=== PATIENT | female | born 1965 | race Caucasian/White ===

== ENCOUNTER → 2016-07-30 | Outpatient (CLI) | payer OTHER | END | disposition home or self-care (01) | LOC: MA 15:31 | PROC: BH02ZZZ Plain Radiography of Bilateral Breasts (ICD-10-PCS; principal; 2016-07-30) | DX: Z12.31 Encounter for screening mammogram for malignant neoplasm of breast (principal) | CPT/HCPCS: G0202 ==

== ENCOUNTER → 2016-08-12 | Outpatient (CLI) | payer OTHER ==
[2016-08-12 08:21] LABS: BASOPHIL % 0.9 % (0-2); PLATELET COUNT 230 x10^3mcL (130-400); RED CELL DISTRIBUTION WIDTH 13.1 % (11.5-14.5)
[2016-08-12 09:07] LABS: ALBUMIN 3.8 g/dL (3.4-5.0); ALKALINE PHOSPHATASE 71 U/L (46-116); ALT/SGPT 47 U/L (14-59); AST/SGOT 24 U/L (15-37); BILIRUBIN DIRECT 0.08 mg/dL (0.0-0.2); CALCIUM 8.9 mg/dL (8.5-10.1); CARBON DIOXIDE 27.1 mmol/L (21-32); CHLORIDE SERUM 105 mmol/L (98-107); CREATININE SERUM 0.7 mg/dL (0.6-1.0); FREE T4 0.99 ng/dL (0.76-1.46); GFR1 > 60 mL/min; GLUCOSE SERUM 106 mg/dL (74-106); HDL CHOLESTEROL 46 mg/dL (40-60); SODIUM SERUM 141 mmol/L (136-145); TOTAL PROTEIN, SERUM 7.5 g/dL (6.4-8.2)
[2016-08-12 09:33] LABS: CHOLESTEROL 225 mg/dL (<200); CHOLESTEROL/HDL RATIO 4.9; TRIGLYCERIDES 276 mg/dL (<150)
== END | disposition home or self-care (01) ==
LOC: LB 07:50
PROVIDERS: Internal Medicine
DX: Z00.00 Encounter for general adult medical examination without abnormal findings (principal)
CPT/HCPCS: 84439

== ENCOUNTER 2016-09-04 12:10 | Emergency (ER) | payer OTHER ==
[2016-09-04 12:21] VITALS: BP 147/82
== END 2016-09-04 12:32 | disposition home or self-care (01) ==
LOC: ED 12:10
DX: H65.93 Unspecified nonsuppurative otitis media, bilateral (principal)

== ENCOUNTER → 2017-04-10 | Outpatient (CLI) | payer OTHER | END | disposition home or self-care (01) | LOC: US 11:30 | PROC: BW4GZZZ Ultrasonography of Pelvic Region (ICD-10-PCS; principal; 2017-04-10) | DX: N95.0 Postmenopausal bleeding (principal) ==

== ENCOUNTER 2017-05-07 15:56 | Emergency (ER) | payer OTHER ==
[~2017-05-07] VITALS: Ht 162.6 cm; Wt 86.2 kg
[2017-05-07 15:58] VITALS: Ht 162.6 cm; Wt 86.2 kg
[2017-05-07 16:37] LABS: BASOPHIL % 0.7 % (0-2); PLATELET COUNT 231 x10^3mcL (130-400); RED CELL DISTRIBUTION WIDTH 13.3 % (11.5-14.5)
[2017-05-07 16:46] LABS: CALCIUM 9.2 mg/dL (8.5-10.1); CARBON DIOXIDE 27.8 mmol/L (21-32); CHLORIDE SERUM 102 mmol/L (98-107); CREATININE SERUM 0.7 mg/dL (0.6-1.0); GFR1 > 60 mL/min; GLUCOSE SERUM 98 mg/dL (74-106); POTASSIUM SERUM 3.6 mmol/L (3.5-5.1); SODIUM SERUM 140 mmol/L (136-145)
[2017-05-07 16:51] LABS: ALBUMIN 3.9 g/dL (3.4-5.0); ALKALINE PHOSPHATASE 75 U/L (46-116); ALT/SGPT 94 U/L (14-59); AST/SGOT 65 U/L (15-37); BILIRUBIN TOTAL 0.2 mg/dL (0.20-1.00); TOTAL PROTEIN, SERUM 7.9 g/dL (6.4-8.2)
[2017-05-07 17:37] VITALS: BP 136/80
== END 2017-05-07 17:50 | disposition home or self-care (01) ==
LOC: ED 15:56
PROVIDERS: Emergency Medicine
DX: L04.0 Acute lymphadenitis of face, head and neck (principal); Z88.1 Allergy status to other antibiotic agents; Z88.2 Allergy status to sulfonamides; Z88.5 Allergy status to narcotic agent
CPT/HCPCS: 36415

== ENCOUNTER 2018-07-27 02:07 | Emergency (ER) | payer OTHER ==
[~2018-07-27] VITALS: Ht 162.6 cm; Wt 94.3 kg
[2018-07-27 02:20] VITALS: Ht 162.6 cm; Wt 94.3 kg
[2018-07-27 03:52] VITALS: BP 139/88
== END 2018-07-27 03:52 | disposition home or self-care (01) ==
LOC: ED 02:07
DX: S90.121A Contusion of right lesser toe(s) without damage to nail, initial encounter (principal); R03.0 Elevated blood-pressure reading, without diagnosis of hypertension; Z88.2 Allergy status to sulfonamides; Z88.5 Allergy status to narcotic agent; Z88.8 Allergy status to other drugs, medicaments and biological substances; W22.8XXA Striking against or struck by other objects, initial encounter; Y93.89 Activity, other specified; Y92.89 Other specified places as the place of occurrence of the external cause; Y99.8 Other external cause status
CPT/HCPCS: Q0092

== ENCOUNTER → 2019-04-30 | Outpatient (CLI) | payer OTHER ==
[2019-04-30 08:38] LABS: CARBON DIOXIDE 28.6 mmol/L (21-32); CHLORIDE SERUM 104 mmol/L (98-107); POTASSIUM SERUM 4.2 mmol/L (3.5-5.1); SODIUM SERUM 140 mmol/L (136-145)
[2019-04-30 08:39] LABS: ALBUMIN 3.6 g/dL (3.4-5.0); CALCIUM 9.2 mg/dL (8.5-10.1); CREATININE SERUM 0.8 mg/dL (0.6-1.0); GFR1 > 60 mL/min; GLUCOSE SERUM 92 mg/dL (74-106); TOTAL PROTEIN, SERUM 7.6 g/dL (6.4-8.2)
[2019-04-30 08:40] LABS: ALKALINE PHOSPHATASE 76 U/L (46-116); ALT/SGPT 42 U/L (14-59); AST/SGOT 22 U/L (15-37); BILIRUBIN TOTAL 0.4 mg/dL (0.20-1.00); CHOLESTEROL 228 mg/dL (<200); CHOLESTEROL/HDL RATIO 5.3; HDL CHOLESTEROL 43 mg/dL (40-60); TRIGLYCERIDES 201 mg/dL (<150)
[2019-04-30 08:41] LABS: FREE T4 0.93 ng/dL (0.76-1.46); PLATELET COUNT 226 x10^3mcL (130-400); RED CELL DISTRIBUTION WIDTH 13.1 % (11.5-14.5)
== END | disposition home or self-care (01) ==
LOC: MA 07:36
PROVIDERS: Internal Medicine
PROC: BH02ZZZ Plain Radiography of Bilateral Breasts (ICD-10-PCS; principal; 2019-04-30)
DX: Z12.31 Encounter for screening mammogram for malignant neoplasm of breast (principal); R53.83 Other fatigue; R63.5 Abnormal weight gain; E78.00 Pure hypercholesterolemia, unspecified; M54.16 Radiculopathy, lumbar region
CPT/HCPCS: 77067; 84439

== ENCOUNTER 2019-08-05 16:21 | Emergency (ER) | payer OTHER ==
[~2019-08-05] VITALS: Ht 162.6 cm; Wt 90.7 kg
[2019-08-05 16:27] VITALS: BP 161/80; Ht 162.6 cm; Wt 90.7 kg
== END 2019-08-05 16:47 | disposition home or self-care (01) ==
LOC: ED 16:21
DX: B02.39 Other herpes zoster eye disease (principal); R21 Rash and other nonspecific skin eruption; Z88.8 Allergy status to other drugs, medicaments and biological substances; Z88.2 Allergy status to sulfonamides; Z88.1 Allergy status to other antibiotic agents; Z88.5 Allergy status to narcotic agent

== ENCOUNTER 2020-03-12 17:01 | Emergency (ER) | payer OTHER, SELFPAY ==
[~2020-03-12] VITALS: Ht 165.1 cm; Wt 81.6 kg
[2020-03-12 17:03] VITALS: Ht 165.1 cm; Wt 81.6 kg
[2020-03-12 18:09] VITALS: BP 133/71
== END 2020-03-12 18:09 | disposition home or self-care (01) ==
LOC: ED 17:01
DX: U07.1 COVID-19 (principal); B34.9 Viral infection, unspecified; Z88.8 Allergy status to other drugs, medicaments and biological substances; Z88.2 Allergy status to sulfonamides; Z88.5 Allergy status to narcotic agent; Z88.1 Allergy status to other antibiotic agents
CPT/HCPCS: U0003